=== PATIENT | female | born 1990 | race African-American/Black ===

== ENCOUNTER 2016-12-02 11:22 | Emergency (ER) | payer OTHER ==
[~2016-12-02] VITALS: Ht 154.9 cm; Wt 77.1 kg
[~2016-12-02 11:22] MED LIST: ANUSOL-HC25 MG RECTAL; COLACE 100 MG100 MG PO; FISH OIL 1,001000 MG PO; IBUPROFEN 600600 M1 PO; IBUPROFEN 800800 MG PO; IRON325 PO; LIDOCAINE VISC100 ML TOP; ONDANSETRON HCL4 M2 PO; PREDNISONE 10 M10 MG PO; PREDNISONE 20 M20 MG PO; PREDNISONE50 MG PO; PRENATAL; ZPAK PO
[2016-12-02] MEDS ORDERED: IBUPROFEN 600600 M1 PO (11:51)
[2016-12-02 12:38] VITALS: BP 152/88
== END 2016-12-02 12:38 | disposition home or self-care (01) ==
LOC: ER 11:22
DX: S00.93XA Contusion of unspecified part of head, initial encounter (principal); V89.2XXA Person injured in unspecified motor-vehicle accident, traffic, initial encounter; Y93.89 Activity, other specified; Y92.89 Other specified places as the place of occurrence of the external cause; Y99.8 Other external cause status

== ENCOUNTER 2016-12-04 13:48 | Emergency (ER) | payer OTHER ==
[~2016-12-04] VITALS: Ht 154.9 cm; Wt 77.1 kg
[2016-12-04 15:59] VITALS: BP 157/101
== END 2016-12-04 16:00 | disposition home or self-care (01) ==
LOC: ER 13:48
DX: R51 Headache (principal); F07.81 Postconcussional syndrome; R42 Dizziness and giddiness

== ENCOUNTER 2018-05-16 16:59 | Emergency (ER) | payer OTHER ==
[~2018-05-16] VITALS: Ht 154.9 cm; Wt 87.5 kg
[2018-05-16] MEDS ORDERED: TYLENOL EXTRA500 MG PO ×2 (17:07→17:08)
[2018-05-16] MEDS ORDERED: PRENATAL PO (17:07)
[2018-05-16] MEDS ORDERED: IRON325 PO (17:09)
[2018-05-16] MEDS ORDERED: TRIPLE ANTIBIOT28 G2 TOP (17:56)
[2018-05-16] MEDS ORDERED: HYDROCODONE-AP1 EAC6 PO (17:56)
[2018-05-16 18:44] VITALS: BP 131/68
== END 2018-05-16 18:46 | disposition home or self-care (01) ==
LOC: ER 16:59
DX: T22.252A Burn of second degree of left shoulder, initial encounter (principal); X11.8XXA Contact with other hot tap-water, initial encounter; Y93.89 Activity, other specified; Y92.89 Other specified places as the place of occurrence of the external cause; Y99.8 Other external cause status

== ENCOUNTER 2019-12-21 11:14 | Emergency (ER) | payer OTHER ==
[~2019-12-21] VITALS: Ht 154.9 cm; Wt 77.1 kg
[~2019-12-21 11:14] MED LIST changes: +HYDROCODONE-AP1 EAC6 PO; +PRENATAL PO; +TRIPLE ANTIBIOT28 G2 TOP; +TYLENOL EXTRA500 MG PO
[2019-12-21 12:16] LABS: URINE BILIRUBIN NEGATIVE (Negative); URINE BLOOD NEGATIVE (Negative); URINE CLARITY CLEAR; URINE COLOR YELLOW; URINE GLUCOSE-RANDOM* NEGATIVE (Negative); URINE KETONES TRACE (Negative); URINE NITRITE-REFLEX NEGATIVE (Negative); URINE PROTEIN (DIPSTICK) NEGATIVE (Negative); URINE UROBILINOGEN 0.2 E.U./dl (0.2-1.0)
[2019-12-21 12:18] LABS: URINE LEUKOCYTES-REFLEX 2+ (Negative)
[2019-12-21] MEDS ORDERED: BUTALB-APAP-CA1 EACH PO (12:28)
[2019-12-21 12:30] LABS: SQUAMOUS 0-3 Few /LPF (0-3)
[2019-12-21 12:31] LABS: BACTERIA-REFLEX >30 Many /HPF (None Seen); CASTS None Seen /LPF (None Seen); CRYSTALS None Seen /LPF (None Seen); URINE RBC 0-2 Rare /HPF (0-2); URINE WBC-REFLEX 6-15 Few /HPF (0-5)
[2019-12-21] MEDS ORDERED: KEFLEX500 M1 PO (12:41)
[2019-12-21 13:23] VITALS: BP 129/73
== END 2019-12-21 13:23 | disposition home or self-care (01) ==
LOC: ER 11:14
PROVIDERS: Emergency Medicine
DX: O23.41 Unspecified infection of urinary tract in pregnancy, first trimester (principal); O99.351 Diseases of the nervous system complicating pregnancy, first trimester; G44.209 Tension-type headache, unspecified, not intractable; M26.609 Unspecified temporomandibular joint disorder, unspecified side; Z3A.01 Less than 8 weeks gestation of pregnancy